=== PATIENT | female | born 1990 | race Caucasian/White ===

== ENCOUNTER 2016-09-20 01:59 | Emergency (ER) | payer OTHER ==
[~2016-09-20 01:59] MED LIST: ALBUTEROL17 GM INH; AMOXICILLIN500 M1 PO; BACTRIM DS TABL1 TA1 PO; BACTRIM DS TABL1 TA2 PO; CORTISPORIN-TC10 ML OT; FLEXERIL PO; KEFLEX500 M1 PO; KETOPROFEN PO; VICODIN 5/1 TAB 5/50 PO; VOLTAREN50 MG PO
== END 2016-09-20 03:25 | disposition home or self-care (01) ==
LOC: CED 01:59
DX: L03.211 Cellulitis of face (principal); J45.909 Unspecified asthma, uncomplicated; F17.210 Nicotine dependence, cigarettes, uncomplicated
CPT/HCPCS: 99283